=== PATIENT | female | born 1950 | race Caucasian/White ===

== ENCOUNTER 2024-04-01 07:06 | Emergency (ER) | payer MEDICARE, SELFPAY ==
[2024-04-01 07:23] VITALS: BP 116/68; PULSE 78; RESP 16; TEMP 36.6; O2SAT 99; BMI 25.7
--- NOTE | 2024-04-01 07:43 | ED.HEATRA ---
HPI - Head Injury General Chief complaint: Head Injury Stated complaint: head injury t-1, dizziness Time Seen by Provider: 04/01/24 07:14 History of Present Illness HPI Narrative: 73-year-old female with history of hypertension presents by private vehicle from home for evaluation after minor head injury 2 days ago. Night before last patient was bending over to do something with her puppy. When she went to stand she struck the back of her head against a clock that is on the wall. She states that afterwards she seemed a little bit dazed but did not lose consciousness. Denies use of blood thinners. Yesterday patient stated that she had mild dizziness. She states that she called several friends who were nurse practitioners who recommended she come to the emergency department for evaluation. Patient states that today she feels much better, has no dizziness, and was able to drive herself from [facility] to the hospital without any difficulty. Patient History Social History Smoking Status: Never smoker Smoking Status: Never smoker alcohol intake frequency: a few times a month Alcohol type: hard liquor Substance Use Type: does not use Exam Initial Vital Signs Initial Vital Signs: Vital Signs Temperature 98 F 04/01/24 07:23 Pulse Rate 78 04/01/24 07:23 Respiratory Rate 16 04/01/24 07:23 Blood Pressure 116/68 04/01/24 07:23 Pulse Oximetry 99 04/01/24 07:23 Oxygen Delivery Method Room Air 04/01/24 07:23 Const: Awake, alert, no acute distress, nontoxic appearing HEENT: No skull deformity, TM normal bilaterally, PERRLA, no raccoon eyes, no shukla sign, no hemotympanum MSK: Atraumatic, full range of motion, pulses equal Skin: Warm, Dry, intact, no rashes Neuro: AO x3, CN II-XII grossly intact, moves all extremities Course Vital Signs Vital signs: Vital Signs - 8 hr 04/01/24 07:23 Temperature 98 F Pulse Rate 78 Respiratory Rate 16 Blood Pressure 116/68 Pulse Oximetry 99 Oxygen Delivery Method Room Air MDM - Head Injury MDM Narrative Medical decision making narrative: Well-appearing patient presenting for general evaluation after minor head trauma greater than 36 hours ago. Physical exam is reassuring, patient did not lose consciousness, denies use of blood thinners. At this time based on how long it has been from initial injury to now as well as resolving symptoms no indication for CT scan at this time. Patient counseled she may take Tylenol as needed for discomfort and she should apply ice as needed for swelling. Discharge Plan Departure Patient Disposition: Home Clinical Impression: Closed head injury Instructions: DI for Closed Head Injury Activity Restrictions/Additional Instructions: Your physical exam today is overall reassuring. I do not see any evidence or secondary signs of head bleed or neurologic compromise. You may take 1000 mg of Tylenol every 6 hours as needed for pain or swelling. Take no more than 4000 mg total of Tylenol daily. You may continue to apply ice as needed for comfort. If you notice worsening headache, dizziness, vision changes, or any other concerning symptoms please feel free to return to the emergency department for repeat evaluation. Stand Alone Forms: Patient Portal/API
== END 2024-04-01 07:55 | disposition home or self-care (01) ==
PROVIDERS: Emergency Provider Emergency Medicine
DX: S09.90XA Unspecified injury of head, initial encounter (principal); W22.8XXA Striking against or struck by other objects, initial encounter
CPT/HCPCS: 99281